=== PATIENT | male | born 1940 | race Caucasian/White ===

== ENCOUNTER 2021-12-11 04:38 | Outpatient (CLI) | payer MEDICARE, OTHER | END 2021-12-11 04:39 | disposition critical access hospital (66) | LOC: EMS 04:38 | DX: R06.02 Shortness of breath (principal); I50.9 Heart failure, unspecified | CPT/HCPCS: A0425; A0427 ==

== ENCOUNTER 2021-12-11 04:48 | Emergency (ER) | payer MEDICARE, OTHER ==
[2021-12-11] MEDS ORDERED: FUROSEMIDE 40 MG/4 ML VIAL IVP STA (05:16)
--- NOTE | 2021-12-11 05:23 | ED Physician Documentation ---
PD HPI DYSPNEA - Stated complaint Stated Complaint: SOA - Chief complaint Chief Complaint: Resp - History obtained from History obtained from: Family (Patient's ) - Additional information Additional information: Patient is a 81-year-old male with a history significant for stroke, CH Brought in by ambulance for shortness of breath that started at 3 AM. Patient was recently admitted at [facility] for 4-1/2 days for new onset CHF 2.5 weeks ago. He was started on Lasix. is unsure of the Lasix dose but does ensure that he takes his medications as prescribed. Per the the patient had not been doing as well over the last week but yesterday had a good day so [place]. Yesterday was a good day but this morning he woke up at 3 AM gasping for air and yelling for help. activated EMS. When EMS arrived they noted oxygen saturations in the 80s. They gave a dose of IV Solu-Medrol for CHF (per scientific publications editor this is their protocol) And transported patient. Patient is not able to provide history. Per he does have baseline confusion. She reports that during previous hospitalization he did require restraints. His social media campaign manager is Dr. Martin at the [facility]. 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 Review of Systems Unable to obtain: Confused (Per patient has baseline confusion. Patient tells me he is here for a checkup.) PD PAST MEDICAL HISTORY - Past Medical History Past Medical History: No Cardiovascular: Congestive heart failure, Hypertension Neuro: Dementia - Past Surgical History Past Surgical History: Yes - Present Medications Home Medications: Ambulatory Orders Medication Instructions Recorded Confirmed Aspirin Chewable [[place]ad 81 mg PO DAILY 12/11/21 12/11/21 Aspirin] Atorvastatin Calcium [Lipitor] 80 mg PO DAILY 12/11/21 12/11/21 Clopidogrel [Plavix] 75 mg PO ONCE 12/11/21 12/11/21 Furosemide [Lasix] 40 mg PO DAILY 12/11/21 12/11/21 Insulin Glargine [Lantus Solostar] 18 units SQ BID 12/11/21 12/11/21 PARoxetine HCl [Paxil] 20 mg PO DAILY 12/11/21 12/11/21 Sitagliptin Phosphate [Januvia] 25 mg PO DAILY 12/11/21 12/11/21 amLODIPine [Norvasc] 5 mg PO DAILY 12/11/21 12/11/21 metFORMIN [Glucophage] 500 mg PO DAILY 12/11/21 12/11/21 - Allergies Allergies/Adverse Reactions: Allergies Allergy/AdvReac Type Severity Reaction Status Date / Time No Known Drug Allergies Allergy Verified 12/11/21 05:14 - Social History Does the pt smoke?: No Smoking Status: Never smoker PD ED PE NORMAL - General General: Well developed/nourished, Other (Mild distress) - HEENT HEENT: Atraumatic, Moist mucous membranes - Neck Neck: Supple, no meningeal sign - Cardiac Cardiac: Strong equal pulses, Other (Tachycardic, regular rhythm, murmur) - Respiratory Respiratory: Other (Tachypneic, diminished breath sounds with Rales) - Abdomen Abdomen: Normal bowel sounds, Soft, Non tender, Non distended - Extremities Extremities: Other (Mild bilateral pitting edema) - Neuro Neuro: bobbin loose end finder 2-12 intact, No motor deficit, Normal speech. No: Alert and oriented X 3 (AO x2 to person and place) - Psych Psych: Normal mood Results - Vitals Vitals: Vital Signs - 24 hr 12/11/21 12/11/21 12/11/21 04:47 05:36 05:49 Temperature 36.6 C Heart Rate 103 H 87 88 Respiratory 17 24 Rate Blood Pressure 124/108 H O2 Saturation 88 L 97 12/11/21 12/11/21 12/11/21 06:06 06:15 06:36 Temperature Heart Rate 85 86 Respiratory 23 15 Rate Blood Pressure 137/72 H 129/63 O2 Saturation 99 98 98 12/11/21 12/11/21 12/11/21 07:00 07:30 07:39 Temperature Heart Rate 93 89 89 Respiratory 31 H 17 Rate Blood Pressure 145/103 H 148/100 H O2 Saturation 99 98 12/11/21 12/11/21 12/11/21 08:00 08:30 09:00 Temperature Heart Rate 86 88 86 Respiratory 23 19 22 Rate Blood Pressure 124/84 H 119/61 125/67 O2 Saturation 98 98 94 12/11/21 12/11/21 12/11/21 09:30 10:00 10:30 Temperature Heart Rate 88 88 89 Respiratory 17 22 19 Rate Blood Pressure 133/102 H 118/99 H 115/60 O2 Saturation 93 95 95 04/16/22 04/16/22 04/16/22 11:00 11:30 11:38 Temperature 36.6 C Heart Rate 86 90 89 Respiratory 20 20 26 H Rate Blood Pressure 126/70 118/71 118/71 O2 Saturation 96 98 97 12/11/21 12/11/21 12/11/21 12:00 12:30 13:00 Temperature Heart Rate 86 107 H 98 Respiratory 17 20 22 Rate Blood Pressure 137/90 H 126/106 H 110/80 O2 Saturation 97 96 97 12/11/21 12/11/21 12/11/21 13:30 14:00 14:30 Temperature Heart Rate 95 96 102 H Respiratory 20 22 20 Rate Blood Pressure 114/98 H 126/81 H O2 Saturation 98 96 92 12/11/21 12/11/21 15:00 15:44 Temperature Heart Rate 99 90 Respiratory 22 80 H Rate Blood Pressure 129/76 110/91 H O2 Saturation 92 100 Oxygen O2 Source Nasal cannula Oxygen Flow Rate 4 - EKG (time done) 0457 Rate: Rate (enter#) (103) Rhythm: Sinus tachycardia [place]: Normal Ischemia: ST depression (Lateral leads) Compare to prior EKG: Old EKG unavailable - Labs Labs: Laboratory Tests 12/11/21 12/11/21 12/11/21 05:31 06:00 06:00 WBC 7.7 RBC 3.00 L Hgb 9.3 L Hct 26.9 L MCV 89.7 MCH 31.0 MCHC 34.6 RDW 14.6 Plt Count 203 MPV 11.4 Neut # (Auto) 6.7 H Lymph # (Auto) 0.5 L Moore # (Auto) 0.5 Eos # (Auto) 0.0 Baso # (Auto) 0.0 Absolute Nucleated RBC 0.00 Nucleated RBC % 0.0 PT 12.6 INR 1.1 APTT Sodium Potassium Chloride Carbon Dioxide Anion Gap BUN Creatinine Estimated GFR (MDRD) Glucose Calcium Magnesium Total Bilirubin AST ALT Alkaline Phosphatase Troponin I High Sens B-Natriuretic Peptide Total Protein Albumin Globulin Albumin/Globulin Ratio Lipase SARS-CoV-2 (PCR) NOT DETECTED 12/11/21 12/11/21 12/11/21 06:00 06:00 06:00 WBC RBC Hgb Hct MCV MCH MCHC RDW Plt Count MPV Neut # (Auto) Lymph # (Auto) Moore # (Auto) Eos # (Auto) Baso # (Auto) Absolute Nucleated RBC Nucleated RBC % PT INR APTT Sodium 137 Potassium 3.7 Chloride 100 L Carbon Dioxide 23 Anion Gap 14.0 H BUN 43 H Creatinine 1.4 H Estimated GFR (MDRD) 49 L Glucose 209 H Calcium 9.1 Magnesium Total Bilirubin 1.0 AST 20 ALT 19 Alkaline Phosphatase 46 Troponin I High Sens 175.3 H* B-Natriuretic Peptide 702 H Total Protein 7.7 Albumin 4.0 Globulin 3.7 Albumin/Globulin Ratio 1.1 Lipase 29 SARS-CoV-2 (PCR) 12/11/21 12/11/21 12/11/21 09:24 12:03 15:11 WBC 7.1 RBC 3.14 L Hgb 9.6 L Hct 28.3 L MCV 90.1 MCH 30.6 MCHC 33.9 RDW 14.7 Plt Count 206 MPV 11.2 Neut # (Auto) Lymph # (Auto) Moore # (Auto) Eos # (Auto) Baso # (Auto) Absolute Nucleated RBC Nucleated RBC % PT INR APTT 61.8 H Sodium 135 Potassium 4.2 Chloride 99 L Carbon Dioxide 20 L Anion Gap 16.0 H BUN 52 H Creatinine 1.8 H Estimated GFR (MDRD) 37 L Glucose 356 H Calcium 9.2 Magnesium 1.6 L Total Bilirubin AST ALT Alkaline Phosphatase Troponin I High Sens B-Natriuretic Peptide Total Protein Albumin Globulin Albumin/Globulin Ratio Lipase SARS-CoV-2 (PCR) 12/11/21 15:11 WBC RBC Hgb Hct MCV MCH MCHC RDW Plt Count MPV Neut # (Auto) Lymph # (Auto) Moore # (Auto) Eos # (Auto) Baso # (Auto) Absolute Nucleated RBC Nucleated RBC % PT INR APTT Sodium Potassium Chloride Carbon Dioxide Anion Gap BUN Creatinine Estimated GFR (MDRD) Glucose Calcium Magnesium Total Bilirubin AST ALT Alkaline Phosphatase Troponin I High Sens 640.9 H* B-Natriuretic Peptide Total Protein Albumin Globulin Albumin/Globulin Ratio Lipase SARS-CoV-2 (PCR) PD MEDICAL DECISION MAKING - ED course Complexity details: reviewed results, re-evaluated patient, d/w patient, d/w family ED course: Pt with history of CHF with SOB and hypoxia. On exam, appears to have pulmonary edema. BiPAP initiated for oxygenation and respiratory support. EKG with depressions to lateral leads and no previous for comparison. Pt continues to deny CP or really any symptoms. Labs significant for elevated troponin. Hemoglobin noted to be 9.3 - per and pt, no melanotic stools. Heparin started. Pt requires transfer as Cardiology unavailable here. has accepted but no bed available at time of shift change. Pt signed out to AM provider, Dr. Walker. Pt and both updated regarding plan. 0650 - D/W Transfer center. They are currently full with no beds available but will try and accommodate the patient as he is established with them. 07 - D/W Dr. Sanchez ( Cardiology), Accepts the patient for transfer. They will try and make a bed available for him at [facility]. She request that if patient has not urinated in the next hour to double the Lasix dose to 80 mg IV. 0816 - Pt able to urinate, appears comfortable on BiPAP. - Critical Care Time(min): 33 Time Includes: Direct patient care, Review records, Reassess patient, Document care, Coordinate care, Medical consult Departure - Departure Disposition: 02 Transfer Acute Care Hosp Clinical Impression: NSTEMI (non-ST elevated myocardial infarction) Respiratory failure Qualifiers: Chronicity: acute Respiratory failure complication: hypoxia Qualified Code(s): J96.01 - Acute respiratory failure with hypoxia Congestive heart failure Qualifiers: Heart failure type: unspecified Heart failure chronicity: acute Qualified Code(s): I50.9 - Heart failure, unspecified Condition: Serious
[2021-12-11 06:18] LABS: BASOPHILS % (AUTO) 0.3 %; EOSINOPHILS % (AUTO) 0.1 %; HCT - HEMATOCRIT 26.9 % (42.0-52.0); HGB - HEMOGLOBIN 9.3 g/dL (14.0-18.0); LYMPHOCYTES # (AUTO) 0.5 10^3/uL (1.5-3.5); LYMPHOCYTES % (AUTO) 6.5 %; MEAN CORPUSCULAR HGB CONC 34.6 g/dL (32.0-36.0); MEAN CORPUSCULAR VOLUME 89.7 fL (80.0-94.0); MEAN PLATELET VOLUME 11.4 fL (7.4-11.4); MONOCYTES # (AUTO) 0.5 10^3/uL (0.0-1.0); NEUTROPHILS # (AUTO) 6.7 10^3/uL (1.5-6.6); NEUTROPHILS % (AUTO) 86.8 %; PLT - PLATELET COUNT 203 10^3/uL (130-450); RED CELL DISTRIBUTION WIDTH 14.6 % (12.0-15.0); WHITE BLOOD COUNT 7.7 x10^3/uL (4.8-10.8)
[2021-12-11 06:23] LABS: INR 1.1 (0.8-1.2); PT - PROTHROMBIN TIME 12.6 secs (9.9-12.6)
[2021-12-11 06:26] LABS: ALBUMIN/GLOBULIN RATIO 1.1 (1.0-2.2); CALCIUM 9.1 mg/dL (8.5-10.3); CREATININE 1.4 mg/dL (0.6-1.2); POTASSIUM 3.7 mmol/L (3.5-5.0); TOTAL PROTEIN 7.7 g/dL (6.7-8.2)
[2021-12-11] MEDS ORDERED: ASPIRIN CHEW 81 MG TABLET PO STA (06:39)
[2021-12-11] MEDS ORDERED: HEPARIN 25000UNITS/500ML (D5W) 25,000 UNIT/500 ML BAG IV SCH (07:00)
[2021-12-11 09:32] LABS: HCT - HEMATOCRIT 28.3 % (42.0-52.0); HGB - HEMOGLOBIN 9.6 g/dL (14.0-18.0); MEAN CORPUSCULAR HEMOGLOBIN 30.6 pg (27.0-31.0); MEAN CORPUSCULAR HGB CONC 33.9 g/dL (32.0-36.0); MEAN CORPUSCULAR VOLUME 90.1 fL (80.0-94.0); MEAN PLATELET VOLUME 11.2 fL (7.4-11.4); RED BLOOD COUNT 3.14 10^6/uL (4.70-6.10); RED CELL DISTRIBUTION WIDTH 14.7 % (12.0-15.0); WHITE BLOOD COUNT 7.1 x10^3/uL (4.8-10.8)
--- NOTE | 2021-12-11 10:32 | XRAY Report ---
PROCEDURE: Chest 1 View X-Ray INDICATIONS: Short of breath TECHNIQUE: One view of the chest was acquired. COMPARISON: None FINDINGS: Surgical changes and devices: None. Lungs and pleura: No pleural effusions or pneumothorax. Mild generalized interstitial prominence can be seen. There is elevation of the right hemidiaphragm. Mediastinum: Mediastinal contours appear normal. Heart size is moderately enlarged. Bones and chest wall: No suspicious bony lesions. Overlying soft tissues appear unremarkable. IMPRESSION: Moderate cardiomegaly and generalized interstitial prominence. Please correlate with patient examinat ion, history, and laboratory values for underlying congestive heart failure. Note: No significant discrepancy from the preliminary report. Reviewed by: Quirino Arora MD on 12/11/2021 9:31 AM JEEVAN Approved by: Quirino Arora MD on 12/11/2021 9:31 AM JEEVAN Station ID: [id number]
--- NOTE | 2021-12-11 13:35 | ED Physician Documentation ---
ED Addendum - Addendum Addendum: 12/11/21 13:33Recheck on the patient through the morning had shown a decreasing oxygen need. He was able to be removed from the BiPAP and placed on 4 L nasal cannula with oxygenation at 95% resting. He states he is feeling better. He is actually feeling well enough that he states he does not feel he needs to be in the hospital. However his son is here with him and we both point out that he is requiring oxygen still in order to maintain adequate saturations and would not do well without that. He acknowledges that and also realizes he had pretty significant breathing difficulty this morning and did not like having that much respiratory distress. I pointed out to him that he likely would have the same condition happen if he were to go home without better treatment and evaluation of his heart condition. He is agreeable then with our assessment and plan. Check of his blood sugar showed it to be in the 300s. He does take Lantus 18 units twice a day and had not had his dose this morning. We will give that to him. We will also start any other regular medications he would be taking. Latest word from the is he is excepted to their facility as noted in Dr. Francisco's note. However they still do not have beds available and are working on it. He is breathing comfortably without any respiratory distress on 4 L nasal cannula with a controlled heart rate and is able to converse clearly in full sentences.
[2021-12-11] MEDS ORDERED: INSULIN GLARGINE 300 UNIT/3 ML PEN SUBQ SCH (14:00)
[2021-12-11 15:25] LABS: CALCIUM 9.2 mg/dL (8.5-10.3); CREATININE 1.8 mg/dL (0.6-1.2); MAGNESIUM 1.6 mg/dL (1.7-2.8); POTASSIUM 4.2 mmol/L (3.5-5.0)
[2021-12-11] MEDS ORDERED: HEPARIN 5,000 UNIT/ML VIAL IVP STA (18:57)
[2021-12-11] MEDS ORDERED: LORazepam 1 MG TABLET PO STA (19:12)
[2021-12-11 20:10] VITALS: BP 133/81
== END 2021-12-11 20:21 | disposition short-term general hospital (02) ==
LOC: EDUNIT# → ED 04:48
DX: I21.4 Non-ST elevation (NSTEMI) myocardial infarction (principal); I50.9 Heart failure, unspecified; I11.0 Hypertensive heart disease with heart failure; J96.01 Acute respiratory failure with hypoxia; Z20.822 Contact with and (suspected) exposure to COVID-19
CPT/HCPCS: 36415; 71045; 80048; 80053; 83690; 83735; 83880; 84484; 85025; 85027; 85610; 85730; 87635; 93005; 94660; 96374; 96375; 96376; 99285; 99291; A9270; J1815; J8499; 85520